=== PATIENT | female | born 1980 | race American Indian/Alaskan Native ===

== ENCOUNTER 2019-06-09 00:49 | Emergency (ER) | payer OTHER ==
[2019-06-09] MEDS ORDERED: TORADOL ONE (01:30)
[2019-06-09] MEDS ORDERED: NACL 0.9% 1000 ML 1,000 ML IV ONE (01:30)
[2019-06-09] MEDS ORDERED: ZOFRAN IV ONE (01:30)
[2019-06-09] MEDS ORDERED: TORADOL IV ONE (01:30)
[2019-06-09] MEDS ORDERED: NACL 0.9% 1000 ML 1,000 ML ONE (01:31)
[2019-06-09] MEDS ORDERED: ZOFRAN ONE (01:31)
--- NOTE | 2019-06-09 01:35 | Emergency Department Report ---
ED Abdominal Pain HPI - General Chief Complaint: Abdominal Pain Stated Complaint: ABDOMINAL PAIN Time Seen by Provider: 06/09/19 01:17 Source: patient Mode of arrival: Ambulatory Limitations: No Limitations - History of Present Illness Initial Comments: 39 yo F, no PMH, presents to ED with left flank pain. Pt states 2 days ago, she had LLQ pain and nausea. Pt reports pain became worse today, now having located in the left midback area. Reports associated vomiting, urinary frequency, constipation, possible hematuria. Pt states she tried Gas-X and a laxative without relief. MD Complaint: flank pain -: days(s) (2) Location: LLQ, L flank Migration to: L flank Severity: severe Quality: cramping Consistency: constant Improves With: nothing Worsens With: nothing Associated Symptoms: nausea, vomiting, fever, constipation, hematuria. denies: diarrhea, dysuria - Related Data Previous Rx's Medication Instructions Recorded Last Taken Type HYDROcodone/APAP 5-325 [Tasley 1 each PO Q6HR PRN #10 tablet 06/09/19 Unknown Rx 5/325] Naproxen [Naprosyn] 500 mg PO BID #20 tablet 06/09/19 Unknown Rx Ondansetron [Zofran Odt] 4 mg PO Q8HR PRN #20 tab.rapdis 06/09/19 Unknown Rx Allergies Allergy/AdvReac Type Severity Reaction Status Date / Time No Known Allergies Allergy Unverified 06/09/19 01:03 ED Review of Systems ROS: Stated complaint: ABDOMINAL PAIN Other details as noted in HPI Comment: All other systems reviewed and negative Constitutional: fever Gastrointestinal: abdominal pain, nausea, vomiting, constipation Genitourinary: frequency, hematuria. denies: dysuria ED Past Medical Hx - Past Medical History Previous Medical History?: No - Surgical History Past Surgical History?: Yes Additional Surgical History: C-sec - Social History Smoking Status: Never Smoker Substance Use Type: None - Medications Home Medications: Home Medications Medication Instructions Recorded Confirmed Last Taken Type HYDROcodone/APAP 5-325 [Tasley 1 each PO Q6HR PRN #10 tablet 06/09/19 Unknown Rx 5/325] Naproxen [Naprosyn] 500 mg PO BID #20 tablet 06/09/19 Unknown Rx Ondansetron [Zofran Odt] 4 mg PO Q8HR PRN #20 tab.rapdis 06/09/19 Unknown Rx ED Physical Exam - General Limitations: No Limitations General appearance: alert, other (appears uncomfortable) - Head Head exam: Present: atraumatic, normocephalic - Eye Eye exam: Present: normal appearance - ENT ENT exam: Present: mucous membranes moist - Neck Neck exam: Present: normal inspection - Respiratory Respiratory exam: Present: normal lung sounds bilaterally. Absent: respiratory distress - Cardiovascular Cardiovascular Exam: Present: regular rate, normal rhythm - GI/Abdominal GI/Abdominal exam: Present: soft. Absent: distended, tenderness - Extremities Exam Extremities exam: Present: normal inspection, full ROM - Back Exam Back exam: Absent: CVA tenderness (R), CVA tenderness (L) - Neurological Exam Neurological exam: Present: alert, oriented X3 - Psychiatric Psychiatric exam: Present: normal affect, normal mood - Skin Skin exam: Present: warm, dry, intact, normal color ED Course Vital Signs 06/09/19 06/09/19 06/09/19 00:56 02:53 04:00 Temperature 97.6 F Pulse Rate 73 69 Respiratory 20 18 16 Rate Blood Pressure 185/98 Blood Pressure 158/90 [Left] O2 Sat by Pulse 97 99 Oximetry - Reevaluation(s) Reevaluation #1: 06/09/19 02:24 Pt reports resolution of pain with toradol. ED Medical Decision Making - Lab Data Result diagrams: 06/09/19 01:12 06/09/19 01:12 - Radiology Data Radiology results: report reviewed, image reviewed - Medical Decision Making - left kidney stone on CT - pain resolved with Toradol, feeling much better - will d/c at this time - urology f/u advised - return precautions given - Differential Diagnosis kidney stone, diverticulitis, bowel obstruction Critical care attestation.: If time is entered above; I have spent that time in minutes in the direct care of this critically ill patient, excluding procedure time. ED Disposition Clinical Impression: Kidney stone Disposition: DC- TO HOME OR SELFCARE Is pt being admited?: No Condition: Stable Instructions: Kidney Stones (ED) Prescriptions: Naproxen [Naprosyn] 500 mg PO BID #20 tablet HYDROcodone/APAP 5-325 [Tasley 5/325] 1 each PO Q6HR PRN #10 tablet PRN Reason: Pain Ondansetron [Zofran Odt] 4 mg PO Q8HR PRN #20 tab.rapdis PRN Reason: Vomiting Referrals: BRITTANIE UGALDE MD [Staff Physician] - 3-5 Days Time of Disposition: 03:42
[2019-06-09 01:50] LABS: Basophils # (Auto) 0.1 K/mm3 (0.0-0.1); Basophils % (Auto) 0.4 % (0.0-1.8); Eosinophils # (Auto) 0.1 K/mm3 (0.0-0.4); Eosinophils % (Auto) 0.7 % (0.0-4.3); Hematocrit 40.1 % (30.3-42.9); Hemoglobin 13.4 gm/dl (10.1-14.3); Lymphocytes # (Auto) 2.9 K/mm3 (1.2-5.4); Lymphocytes % (Auto) 19.2 % (13.4-35.0); Mean Corpuscular HGB Conc 33 % (30-34); Mean Corpuscular Volume 88 fl (79-97); Monocytes % (Auto) 6.8 % (0.0-7.3); Platelet Count 399 K/mm3 (140-440); Red Blood Count 4.58 M/mm3 (3.65-5.03); Red Cell Distribution Width 15.1 % (13.2-15.2)
[2019-06-09 01:52] LABS: Amorphous Crystals,Urine Few; Bilirubin,Urine NEG (Negative); Blood,Urine MOD (Negative); Color,Urine Straw (Yellow); Mucus,Urine FEW /HPF; Protein,Urine <15 mg/dL mg/dL (Negative); Urobilinogen,Urine < 2.0 mg/dL (<2.0)
[2019-06-09 01:55] LABS: WBC,Urine < 1.0 /HPF (0.0-6.0)
[2019-06-09 02:13] LABS: Alanine Aminotransferase 16 units/L (7-56); Albumin 4.1 g/dL (3.9-5); BUN/Creatinine Ratio 16; Blood Urea Nitrogen 14 mg/dL (7-17); Calcium 9.6 mg/dL (8.4-10.2); Hemolysis Index 8
--- NOTE | 2019-06-09 03:08 | Cat Scan Report ---
CT ABDOMEN AND PELVIS WITHOUT CONTRAST HISTORY: left flank pain. Pain began on Monday and has worsened. COMPARISON: None. TECHNIQUE: CT images of the abdomen and pelvis were obtained without administration of intravenous co ntrast. All CT scans at this location are performed using CT dose reduction for ALARA by means of au tomated exposure control. FINDINGS: Lungs/bones: The lung bases are clear. There is no acute osseous abnormality or significant degenera tive change. Abdomen/pelvis: There is a 1 mm stone at the left-sided ureterovesicular junction with mild left-jemal ed hydronephrosis. The kidneys otherwise appear unremarkable. There is a tiny hepatic cyst in the left lobe. The gallbladder, spleen, pancreas, adrenals, and proxi mal GI tract appear unremarkable. Bladder appears unremarkable. No pelvic free fluid. No acute colonic abnormality identified. The term inal ileum and appendix appear normal. IMPRESSION: 1. 1 mm stone at the left UVJ with mild left-sided hydronephrosis. Signer Name: yK Odell MD Signed: 06/09/2019 3:04 AM Workstation Name: [id number]
[2019-06-09 04:31] VITALS: BP 158/90
== END 2019-06-09 04:05 | disposition home or self-care (01) ==
LOC: ED 00:49
DX: N20.0 Calculus of kidney (principal); R11.2 Nausea with vomiting, unspecified; Z79.899 Other long term (current) drug therapy
CPT/HCPCS: 36415; 74176; 80053; 81001; 83690; 84703; 85025; 96361; 96374; 96375; 99284; J1885; J2405; J7030